=== PATIENT | male | born 1950 | race Two or more races ===

== ENCOUNTER 2024-03-11 17:44 | Emergency (ER) | payer BC ==
[2024-03-11 17:54] LABS: Glucose,Whole Blood 263 mg/dL (70-110)
[2024-03-11 18:02] VITALS: TEMP 98.2
--- NOTE | 2024-03-11 18:19 | ED ---
General Adult HPI - General Chief complaint: Syncope Stated complaint: High blood sugar/dizzy Time Seen by Provider: 03/11/24 18:05 Source: patient, family, RN notes reviewed, old records reviewed Mode of arrival: ambulatory Limitations: physical limitation (Translation provided with the patient's son) - History of Present Illness Initial comments: 73-year-old male with near syncope, elevated blood sugar. Patient is a known diabetic. Earlier today he had an episode where he became diaphoretic, nauseated and nearly passed out. Family states that the blood sugar has been running high the past several weeks. He has been eating. He denies chest pain denies fever. Denies abdominal pain at this time. - Related Data Home Medications Medication Instructions Recorded Confirmed amLODIPine BESYLATE [Amlodipine 10 mg PO DAILY 05/02/15 05/02/15 Besylate] lisinopriL [Lisinopril] 20 mg PO DAILY 05/02/15 05/02/15 Allergies Allergy/AdvReac Type Severity Reaction Status Date / Time sulfamethoxazole Allergy Unknown Verified 05/02/15 09:39 [From Bactrim] trimethoprim [From Bactrim] Allergy Unknown Verified 05/02/15 09:39 Review of Systems ROS Statement: Those systems with pertinent positive or pertinent negative responses have been documented in the HPI. ROS Other: All systems not noted in ROS Statement are negative. Past Medical History Past Medical History: Diabetes Mellitus, Hyperlipidemia, Hypertension History of Any Multi-Drug Resistant Organisms: None Reported Past Surgical History: No Surgical Hx Reported Past Psychological History: No Psychological Hx Reported Past Alcohol Use History: None Reported Past Drug Use History: None Reported General Exam Limitations: no limitations General appearance: alert, in no apparent distress Head exam: Present: atraumatic, normocephalic Eye exam: Present: normal appearance, PERRL ENT exam: Present: mucous membranes dry Neck exam: Present: normal inspection. Absent: tenderness, meningismus Respiratory exam: Present: normal lung sounds bilaterally. Absent: respiratory distress, wheezes Cardiovascular Exam: Present: regular rate, normal rhythm GI/Abdominal exam: Present: soft. Absent: distended, tenderness, guarding Extremities exam: Present: normal inspection, normal capillary refill Neurological exam: Present: alert, CN II-XII intact. Absent: motor sensory deficit Psychiatric exam: Present: normal affect, normal mood Skin exam: Present: intact, pallor. Absent: cyanosis, diaphoretic Course Vital Signs 03/11/24 03/11/24 17:49 20:00 Temperature 98.2 F Pulse Rate 68 78 Respiratory 16 20 Rate Blood Pressure 179/83 168/83 O2 Sat by Pulse 95 98 Oximetry Medical Decision Making - Medical Decision Making Was pt. sent in by a medical professional or institution (LOIS Massey, BODY MECHANIC APPRENTICE, urgent care, hospital, or [place] [facility] facility...) When possible be specific @ -No Did you speak to anyone other than the patient for history (EMS, parent, family, police, friend...)? What history was obtained from this source @ -No Did you review nursing and triage notes (agree or disagree)? Why? @ -I reviewed and agree with nursing and triage notes Were old charts reviewed (outside hosp., previous admission, EMS record, old EKG, old radiological studies, urgent care reports/EKG's, [place] [facility] facility records)? Report findings @ -No old charts were reviewed Differential Diagnosis @ -[Differential Syncope: Valvular disease, hypertrophic cardiomyopathy, pulmonary embolism, tamponade, tachycardia, bradycardia, [place], hypovolemia, hemorrhage, dissection, anemia, intracranial hemorrhage, seizure, hypoglycemia, carbon monoxide poisoning, this is not meant to be an all-inclusive list. EKG interpreted by me (3pts min.). @ -EKG: Sinus rhythm rate of 63, ID interval 186, QRS duration 122, QTc [address] segment elevation, T wave inversion in the lateral precordial leads. X-rays interpreted by me (1pt min.). @ -Rest x-ray negative for acute cardiopulmonary findings. CT interpreted by me (1pt min.). @ -None done U/S interpreted by me (1pt. min.). @ -None done What testing was considered but not performed or refused? (CT, X-rays, U/S, labs)? Why? @ -None What meds were considered but not given or refused? Why? @ -None Did you discuss the management of the patient with other professionals (professionals i.e. LOIS Massey, BODY MECHANIC APPRENTICE, lab, RT, psych nurse, home health care social worker, delivery driver/supervisor, teacher, chairman president and chief executive officer, case finisher)? Give summary @ -No Was smoking cessation discussed for >3mins.? @ -No Was critical care preformed (if so, how long)? @ -No Were there social determinants of health that impacted care today? How? (Homelessness, low income, unemployed, alcoholism, drug addiction, transportation, low edu. Level, literacy, decrease access to med. care, long term, rehab)? @ -No Was there de-escalation of care discussed even if they declined (Discuss DNR or withdrawal of care, Hospice)? DNR status @ -No What co-morbidities impacted this encounter? (DM, HTN, Smoking, COPD, CAD, Cancer, CVA, ARF, Chemo, Hep., AIDS, mental health diagnosis, sleep apnea, morbid obesity)? @ -[Diabetes Was patient admitted / discharged? Hospital course, mention meds given and route, prescriptions, significant lab abnormalities, going to OR and other pertinent info. @ -73-year-old male with near syncopal episode, dehydration. Patient is in sinus rhythm. No chest pain. No abdominal pain. No headache. No focal numbness or weakness. Stable vitals. Normal CBC, normal CMP with the exception of elevated blood glucose urinalysis negative, troponin negative. Patient is very eager for discharge, requesting discharge stating he will follow-up with his primary care provider tomorrow. Undiagnosed new problem with uncertain prognosis? @ -[No Drug Therapy requiring intensive monitoring for toxicity (Heparin, Nitro, Insulin, Cardizem)? @ -No Were any procedures done? @ -No Diagnosis/symptom? @ -Near syncope, dehydration, hyperglycemia Acute, or Chronic, or Acute on Chronic? @Acute Uncomplicated (without systemic symptoms) or Complicated (systemic symptoms)? @ -Default Side effects of treatment? @ -No Exacerbation, Progression, or Severe Exacerbation? @ -No Poses a threat to life or bodily function? How? (Chest pain, [place], [place], pneumonia, PE, COPD, DKA, ARF, appy, cholecystitis, CVA, Diverticulitis, Homicidal, Suicidal, threat to staff... and all critical care pts) @ -No - Lab Data Result diagrams: 03/11/24 18:15 03/11/24 18:15 Lab Results 03/11/24 03/11/24 03/11/24 Range/Units 17:52 18:15 18:15 WBC 10.4 (3.8-10.6) k/uL RBC 5.94 H (4.30-5.90) m/uL Hgb 16.9 (13.0-17.5) gm/dL Hct 50.5 (39.0-53.0) % MCV 85.0 (80.0-100.0) fL MCH 28.4 (25.0-35.0) pg MCHC 33.4 (31.0-37.0) g/dL RDW 13.6 (11.5-15.5) % Plt Count 204 (150-450) k/uL MPV 8.3 Neutrophils % 79 % Lymphocytes % 14 % Monocytes % 4 % Eosinophils % 2 % Basophils % 1 % Neutrophils # 8.2 H (1.3-7.7) k/uL Lymphocytes # 1.5 (1.0-4.8) k/uL Monocytes # 0.4 (0-1.0) k/uL Eosinophils # 0.2 (0-0.7) k/uL Basophils # 0.1 (0-0.2) k/uL PT 10.9 (10.0-12.5) sec INR 1.0 (<1.2) APTT 21.2 L (22.0-30.0) sec Sodium (137-145) mmol/L Potassium (3.5-5.1) mmol/L Chloride (98-107) mmol/L Carbon Dioxide (22-30) mmol/L Anion Gap mmol/L BUN (9-20) mg/dL Creatinine (0.66-1.25) mg/dL Est GFR (CKD-EPI)AfAm (>60 ml/min/1.73 sqM) Est GFR (CKD-EPI)NonAf (>60 ml/min/1.73 sqM) Glucose (74-99) mg/dL POC Glucose (mg/dL) 263 H (70-110) mg/dL POC Glu Shot Hole Driller ID Lindsey Crum Calcium (8.4-10.2) mg/dL Magnesium (1.6-2.3) mg/dL Total Bilirubin (0.2-1.3) mg/dL AST (17-59) U/L ALT (4-49) U/L Alkaline Phosphatase (38-126) U/L Troponin I (0.000-0.034) ng/mL Total Protein (6.3-8.2) g/dL Albumin (3.5-5.0) g/dL Urine Color Urine Appearance (Clear) Urine pH (5.0-8.0) Ur Specific [place] (1.001-1.035) Urine Protein (Negative) Urine Glucose (UA) (Negative) Urine Ketones (Negative) Urine Blood (Negative) Urine Nitrite (Negative) Urine Bilirubin (Negative) Urine Urobilinogen (<2.0) mg/dL Ur Leukocyte Esterase (Negative) 03/11/24 03/11/24 03/11/24 Range/Units 18:15 18:15 19:42 WBC (3.8-10.6) k/uL RBC (4.30-5.90) m/uL Hgb (13.0-17.5) gm/dL Hct (39.0-53.0) % MCV (80.0-100.0) fL MCH (25.0-35.0) pg MCHC (31.0-37.0) g/dL RDW (11.5-15.5) % Plt Count (150-450) k/uL MPV Neutrophils % % Lymphocytes % % Monocytes % % Eosinophils % % Basophils % % Neutrophils # (1.3-7.7) k/uL Lymphocytes # (1.0-4.8) k/uL Monocytes # (0-1.0) k/uL Eosinophils # (0-0.7) k/uL Basophils # (0-0.2) k/uL PT (10.0-12.5) sec INR (<1.2) APTT (22.0-30.0) sec Sodium 135 L (137-145) mmol/L Potassium 4.0 (3.5-5.1) mmol/L Chloride 102 (98-107) mmol/L Carbon Dioxide 21 L (22-30) mmol/L Anion Gap 12 mmol/L BUN 30 H (9-20) mg/dL Creatinine 1.15 (0.66-1.25) mg/dL Est GFR (CKD-EPI)AfAm 73 (>60 ml/min/1.73 sqM) Est GFR (CKD-EPI)NonAf 63 (>60 ml/min/1.73 sqM) Glucose 263 H (74-99) mg/dL POC Glucose (mg/dL) (70-110) mg/dL POC Glu Shot Hole Driller ID Calcium 9.7 (8.4-10.2) mg/dL Magnesium 2.0 (1.6-2.3) mg/dL Total Bilirubin 1.4 H (0.2-1.3) mg/dL AST 25 (17-59) U/L ALT 20 (4-49) U/L Alkaline Phosphatase 66 (38-126) U/L Troponin I <0.012 (0.000-0.034) ng/mL Total Protein 7.3 (6.3-8.2) g/dL Albumin 4.2 (3.5-5.0) g/dL Urine Color Colorless Urine Appearance Clear (Clear) Urine pH 5.0 (5.0-8.0) Ur Specific [place] 1.026 (1.001-1.035) Urine Protein Negative (Negative) Urine Glucose (UA) 4+ H (Negative) Urine Ketones Trace H (Negative) Urine Blood Negative (Negative) Urine Nitrite Negative (Negative) Urine Bilirubin Negative (Negative) Urine Urobilinogen <2.0 (<2.0) mg/dL Ur Leukocyte Esterase Negative (Negative) 03/11/24 Range/Units 19:45 WBC (3.8-10.6) k/uL RBC (4.30-5.90) m/uL Hgb (13.0-17.5) gm/dL Hct (39.0-53.0) % MCV (80.0-100.0) fL MCH (25.0-35.0) pg MCHC (31.0-37.0) g/dL RDW (11.5-15.5) % Plt Count (150-450) k/uL MPV Neutrophils % % Lymphocytes % % Monocytes % % Eosinophils % % Basophils % % Neutrophils # (1.3-7.7) k/uL Lymphocytes # (1.0-4.8) k/uL Monocytes # (0-1.0) k/uL Eosinophils # (0-0.7) k/uL Basophils # (0-0.2) k/uL PT (10.0-12.5) sec INR (<1.2) APTT (22.0-30.0) sec Sodium (137-145) mmol/L Potassium (3.5-5.1) mmol/L Chloride (98-107) mmol/L Carbon Dioxide (22-30) mmol/L Anion Gap mmol/L BUN (9-20) mg/dL Creatinine (0.66-1.25) mg/dL Est GFR (CKD-EPI)AfAm (>60 ml/min/1.73 sqM) Est GFR (CKD-EPI)NonAf (>60 ml/min/1.73 sqM) Glucose (74-99) mg/dL POC Glucose (mg/dL) 194 H (70-110) mg/dL POC Glu Shot Hole Driller ID Soraya Rose Calcium (8.4-10.2) mg/dL Magnesium (1.6-2.3) mg/dL Total Bilirubin (0.2-1.3) mg/dL AST (17-59) U/L ALT (4-49) U/L Alkaline Phosphatase (38-126) U/L Troponin I (0.000-0.034) ng/mL Total Protein (6.3-8.2) g/dL Albumin (3.5-5.0) g/dL Urine Color Urine Appearance (Clear) Urine pH (5.0-8.0) Ur Specific [place] (1.001-1.035) Urine Protein (Negative) Urine Glucose (UA) (Negative) Urine Ketones (Negative) Urine Blood (Negative) Urine Nitrite (Negative) Urine Bilirubin (Negative) Urine Urobilinogen (<2.0) mg/dL Ur Leukocyte Esterase (Negative) Disposition Clinical Impression: Syncope Disposition: HOME SELF-CARE Condition: Fair Instructions (If sedation given, give patient instructions): Syncope (ED), Diabetic Hyperglycemia (ED) Is patient prescribed a controlled substance at d/c from ED?: No Referrals: Vu Hamilton DO [Primary Care Provider] - 1-2 days Time of Disposition: 19:54
[2024-03-11] MEDS: SODIUM CHLORIDE 0.9% 500 ML 500 ML IV ONE (18:23)
[2024-03-11 18:42] LABS: Basophils # (A) 0.1 k/uL (0-0.2); Basophils % (A) 1 %; Eosinophils # (A) 0.2 k/uL (0-0.7); Eosinophils % (A) 2 %; HCT 50.5 % (39.0-53.0); HGB 16.9 gm/dL (13.0-17.5); Lymphocytes # (A) 1.5 k/uL (1.0-4.8); Lymphocytes % (A) 14 %; MCH 28.4 pg (25.0-35.0); MCHC 33.4 g/dL (31.0-37.0); Mean Platelet Volume 8.3; Monocytes # (A) 0.4 k/uL (0-1.0); Monocytes % (A) 4 %; Neutrophils # (A) 8.2 k/uL (1.3-7.7); Neutrophils % (A) 79 %; Platelet Count 204 k/uL (150-450); RBC 5.94 m/uL (4.30-5.90); RDW 13.6 % (11.5-15.5); WBC 10.4 k/uL (3.8-10.6)
[2024-03-11 19:01] LABS: Prothrombin Time 10.9 sec (10.0-12.5)
[2024-03-11 19:02] LABS: ALT 20 U/L (4-49); African American GFR (CKD) 73 (>60 ml/min/1.73 sqM); Anion Gap 12 mmol/L; Blood Urea Nitrogen 30 mg/dL (9-20); Calcium 9.7 mg/dL (8.4-10.2); Carbon Dioxide 21 mmol/L (22-30); Chloride 102 mmol/L (98-107); Glucose 263 mg/dL (74-99); Non-African American GFR(CKD) 63 (>60 ml/min/1.73 sqM); Sodium 135 mmol/L (137-145); Total Bilirubin 1.4 mg/dL (0.2-1.3)
[2024-03-11 19:07] LABS: Partial Thromboplastin Time 21.2 sec (22.0-30.0)
--- NOTE | 2024-03-11 19:07 | XR ---
EXAMINATION TYPE: XR chest 2V DATE OF EXAM: 03/11/2024 6:32 PM CLINICAL INDICATION:Male, 73 years old with history of syncope; [facility] COMPARISON: Chest radiographs from 05/02/2015 TECHNIQUE: XR chest 2V Frontal and lateral views of the chest. FINDINGS: Lungs/Pleura: There is no evidence of pleural effusion, focal consolidation, or pneumothorax. Pulmonary vascularity: Unremarkable. Heart/mediastinum: Cardiomediastinal silhouette is unremarkable. Musculoskeletal: No acute osseous pathology. Other findings: None IMPRESSION: No acute cardiopulmonary disease/process.
[2024-03-11 19:35] LABS: AST 25 U/L (17-59); Albumin 4.2 g/dL (3.5-5.0); Alkaline Phosphatase 66 U/L (38-126); Total Protein 7.3 g/dL (6.3-8.2)
[2024-03-11] MEDS ORDERED: SODIUM CHLORIDE 0.9% 500 ML 500 ML IV ONE (19:38)
[2024-03-11 19:46] LABS: Glucose,Whole Blood 194 mg/dL (70-110)
[2024-03-11 19:54] LABS: Appearance,Urine Clear (Clear); Bilirubin,Urine Negative (Negative); Blood,Urine Negative (Negative); Color,Urine Colorless; Glucose,Urine (UA) 4+ (Negative); Ketones,Urine Trace (Negative); Leukocyte Esterase,Urine Negative (Negative); Nitrite,Urine Negative (Negative); Protein,Urine Negative (Negative); Specific Gravity,Urine 1.026 (1.001-1.035); Urobilinogen,Urine <2.0 mg/dL (<2.0)
[2024-03-11 20:30] VITALS: BP 168/83; PULSE 78; RESP 20
== END 2024-03-11 20:02 | disposition home or self-care (01) ==
LOC: SUPCPDRO 17:44 → EC 17:44
DX: E11.65 Type 2 diabetes mellitus with hyperglycemia (principal); R55 Syncope and collapse; E86.0 Dehydration; Z88.1 Allergy status to other antibiotic agents; Z88.2 Allergy status to sulfonamides
CPT/HCPCS: 36415; 71046; 80053; 81003; 83735; 84484; 85025; 85610; 85730; 93005; 96360; 99284

== ENCOUNTER → 2024-06-01 | Outpatient (CLI) | payer BC | END | disposition home or self-care (01) | LOC: LABWHC1 08:14 | PROVIDERS: ATTEND Nurse Practitioner Family | DX: E11.9 Type 2 diabetes mellitus without complications (principal); I10 Essential (primary) hypertension | CPT/HCPCS: 36415; 83036 ==

== ENCOUNTER → 2024-09-13 | Outpatient (CLI) | payer BC ==
--- NOTE | 2024-09-13 10:00 | MR ---
EXAMINATION TYPE: MR brain wo con DATE OF EXAM: 09/13/2024 COMPARISON: NONE HISTORY: CVA, Left side weakness, memory loss TECHNIQUE: T1-weighted sagittal, T2, FLAIR, and diffusion axial, and T2 coronal coronal views of the brain are submitted. FINDINGS: There is no evidence of acute ischemia. The chronic sinusitis. Orbits are symmetric. Moderate to severe degenerative change with mild to moderate areas of abnormal signal in the white ma tter most assisted with remote ischemic white matter changes. Areas of abnormal signal involving the cerebellar peduncles also most likely on the basis of remote ischemic change favored over demyelinati on. Correlate clinically. No midline shift or mass effect. Areas of abnormal signal involving the basal ganglia and mario are co mpatible with remote ischemic change There is no mass effect. IMPRESSION: 1. No acute intracranial process. 2. Severe sinus chronic sinusitis. 3. Degenerative and remote ischemic changes. [facility], , 09/13/2024 9:58 AM
== END | disposition home or self-care (01) ==
LOC: RADMRIMAIN 08:50
PROVIDERS: ATTEND Student in an Organized Health Care Education/Training Program
CPT/HCPCS: 70551

== ENCOUNTER → 2024-12-22 | Outpatient (CLI) | payer BC ==
[2024-12-22 12:48] LABS: Basophils # (A) 0.05 X 10*3/uL (0.00-0.10); Basophils % (A) 0.8 %; Eosinophils # (A) 0.35 X 10*3/uL (0.04-0.35); Eosinophils % (A) 5.4 %; HCT 47.7 % (39.6-50.0); HGB 16.1 g/dL (13.0-17.0); Lymphocytes # (A) 1.81 X 10*3/uL (0.90-5.00); Lymphocytes % (A) 27.8 %; MCH 28.4 pg (27.0-32.0); MCHC 33.8 g/dL (32.0-37.0); MCV 84.3 FL (80.0-97.0); Monocytes % (A) 7.7 %; NRBC Per 100 WBC 0 X 10*3/uL (0.00-0.01); Neutrophils # (A) 3.78 X 10*3/uL (1.80-7.70); Neutrophils % (A) 58.1 %; Platelet Count 199 X 10*3/uL (140-440); RBC 5.66 X 10*6/uL (4.40-5.60); RDW 13.9 % (11.5-14.5)
[2024-12-22 13:40] LABS: ALT 19 U/L (10-49); AST 16 U/L (14-35); Albumin 4.3 g/dL (3.8-4.9); Albumin/Globulin Ratio 1.65 Ratio (1.60-3.17); Alkaline Phosphatase 84 U/L (41-126); BUN/Creat Ratio 21.22 Ratio (12.00-20.00); Blood Urea Nitrogen 19.1 mg/dL (9.0-27.0); Calcium 9.5 mg/dL (8.7-10.3); Carbon Dioxide 24.1 mmol/L (21.6-31.8); Chloride 104 mmol/L (96-109); Chol/HDL Ratio 3.12 Ratio; Creatine Kinase 47 U/L (35-257); Globulin 2.6 g/dL (1.6-3.3); Glucose 92 mg/dL (70-110); LDL Cholesterol,Calculated 77.8 mg/dL (0.0-131.0); Potassium 3.7 mmol/L (3.5-5.5); Sodium 140 mmol/L (135-145); Total Bilirubin 0.8 mg/dL (0.3-1.2); Total Protein 6.9 g/dL (6.2-8.2); VLDL Calculation 13.24 mg/dL (5.00-40.00)
== END | disposition home or self-care (01) ==
LOC: LABWHC1 09:06
PROVIDERS: ATTEND Student in an Organized Health Care Education/Training Program
DX: I10 Essential (primary) hypertension (principal); I63.9 Cerebral infarction, unspecified; E11.9 Type 2 diabetes mellitus without complications
CPT/HCPCS: 36415; 80053; 80061; 82550; 85025

== ENCOUNTER → 2025-01-01 | Outpatient (CLI) | payer BC ==
[~2025-01-01] MED LIST: DOBUTamine DRIP for NUC MED 500 MG in DEXTROSE/WATER 1 250ML.BAG IV PRN
--- NOTE | 2025-01-01 17:28 | CA ---
Dobutamine Stress Echocardiogram Report Seven De León Age: 74 Gender: M : 1950 Exam Date: 01/01/2025 09:31 Exam Location: [facility] Ordering Physician: Vu Hamilton DO Referring Physician: Vu Hamilton DO Student Development Dean: DONIS Technologist: Ht (in): 71 Wt (lb): 225 Procedure CPT: Indication: R06.09 Other forms of dyspnea ICD-9 Codes: Rhythm: Patient History: HTN, DIABETIC, PRIOR STROKE, HYPERCHOLESTEROLEMIA, FAMILY HX, Cardiac Medications: Medications in past 24 hours: Contrast: Definity Total Dose (mL): 3 Stress Results Protocol: Dobutamine Peak Dose (???g/kg/min): 30 Duration (min:sec): Atropine:(mg) Target HR: 124 Double Product: [id number] Resting HR: 75 Resting BP: 145 / 84 Peak HR: 142 Peak BP: 180 / 67 Max Predicted HR: 146 97 % Max Predicted HR Stress Summary: BP Response: Reason for Termination: TARGET HR Cardiac Symptoms: NO SYMPTOMS ECG Analysis Resting EKG: Normal sinus rhythm poor R-wave progression and left axis deviation Stress EKG: Patient was given intravenous dobutamine over a period of 9 minutes as per protocol achieving 85% of predicted maximum heart rate without chest pain or diagnostic ST segment depression Arrhythmia: Echo Analysis Base Echo Analysis: Normal left ventricular size wall motion systolic function Low Echo Anaylsis: Normal Peak Echo Analysis: Normal hyperdynamic response Recovery Echo: Normal MEASUREMENTS (Male/Female) Normal Values CONCLUSIONS Negative dobutamine stress echo Dr. Tee Padilla MD (Electronically Signed) Final Date: 01 January 2025 17:27
== END | disposition home or self-care (01) ==
LOC: RADNMMAIN 09:05
PROVIDERS: ATTEND Student in an Organized Health Care Education/Training Program
DX: I10 Essential (primary) hypertension (principal); R06.09 Other forms of dyspnea; E11.9 Type 2 diabetes mellitus without complications; Z86.73 Personal history of transient ischemic attack (TIA), and cerebral infarction without residual deficits; E78.00 Pure hypercholesterolemia, unspecified
CPT/HCPCS: 93351; Q9957

== ENCOUNTER → 2025-02-01 | Outpatient (CLI) | payer BC ==
[2025-02-02 03:47] LABS: Appearance,Urine Clear (Clear); Bilirubin,Urine Negative (Negative); Blood,Urine Negative (Negative); Color,Urine Yellow (Yellow); Ketones,Urine Negative (Negative); Nitrite,Urine Negative (Negative); PH, Urine 5.5; Specific Gravity,Urine 1.027 (1.001-1.030); Urobilinogen,Urine 0.2 E.U./DL
[2025-02-02 04:25] LABS: Bacteria,Urine None Seen (None Seen); Yeast (UA) Present (None Seen)
== END | disposition home or self-care (01) ==
LOC: LABWHC1 14:54
PROVIDERS: ATTEND Psychiatry & Neurology Neurology
DX: N39.0 Urinary tract infection, site not specified (principal); R30.0 Dysuria
CPT/HCPCS: 36415; 81001; 84153; 87086

== ENCOUNTER 2025-06-09 17:30 | Observation (INO) | payer BC ==
[2025-06-09 17:37] LABS: Glucose,Whole Blood 182 mg/dL (70-110)
--- NOTE | 2025-06-09 18:27 | ED ---
General Adult HPI - General Chief complaint: Weakness Stated complaint: nausea,weakness Time Seen by Provider: 06/09/25 18:14 Source: patient, family, RN notes reviewed Mode of arrival: wheelchair Limitations: language barrier - History of Present Illness Initial comments: Patient is a 74-year-old male presenting to the emergency department with family for several complaints. Patient has had nausea since yesterday morning. Decreased appetite, limited oral intake today. Patient had difficulty getting out of bed this afternoon. Patient was doing okay prior to that. Patient is not urinating as much as normal. Patient does have history of similar symptoms previously associated with a stroke in the [place]. Family helps translate for the patient at times. Patient does seem to understand majority of questions and does follow commands well - Related Data Home Medications Medication Instructions Recorded Confirmed amLODIPine BESYLATE [Amlodipine 10 mg PO DAILY 05/02/15 05/02/15 Besylate] lisinopriL [Lisinopril] 20 mg PO DAILY 05/02/15 05/02/15 Allergies Allergy/AdvReac Type Severity Reaction Status Date / Time sulfamethoxazole Allergy Unknown Verified 05/02/15 09:39 [From Bactrim] trimethoprim [From Bactrim] Allergy Unknown Verified 05/02/15 09:39 Review of Systems ROS Statement: Those systems with pertinent positive or pertinent negative responses have been documented in the HPI. ROS Other: All systems not noted in ROS Statement are negative. Constitutional: Denies: fever Eyes: Denies: eye pain Respiratory: Denies: dyspnea Cardiovascular: Denies: chest pain Endocrine: Reports: fatigue Gastrointestinal: Reports: nausea. Denies: vomiting Genitourinary: Reports: as per HPI Musculoskeletal: Denies: back pain Neurological: Reports: as per HPI Past Medical History Past Medical History: CVA/TIA, Diabetes Mellitus, Hyperlipidemia, Hypertension History of Any Multi-Drug Resistant Organisms: None Reported Past Surgical History: No Surgical Hx Reported Past Psychological History: No Psychological Hx Reported Smoking Status: Never smoker Past Alcohol Use History: None Reported Past Drug Use History: None Reported General Exam Limitations: no limitations General appearance: alert, in no apparent distress Head exam: Present: normocephalic Eye exam: Present: normal appearance, PERRL, EOMI. Absent: nystagmus ENT exam: Present: normal oropharynx Neck exam: Present: normal inspection. Absent: tenderness Respiratory exam: Present: normal lung sounds bilaterally Cardiovascular Exam: Present: regular rate, normal rhythm GI/Abdominal exam: Present: soft. Absent: distended, tenderness, pulsatile mass Extremities exam: Present: normal inspection, full ROM. Absent: pedal edema, calf tenderness Neurological exam: Present: alert, CN II-XII intact. Absent: motor sensory deficit Psychiatric exam: Present: normal affect, normal mood Skin exam: Present: normal color Course Vital Signs 06/09/25 17:36 Temperature 97.9 F Pulse Rate 128 H Respiratory 18 Rate Blood Pressure 134/79 O2 Sat by Pulse 94 L Oximetry EKG Findings - EKG Results: EKG: interpreted by ERMD (Left axis. Poor R wave progression.), sinus rhythm, normal ST/T EKG shows: tachycardia Medical Decision Making - Medical Decision Making Was pt. sent in by a medical professional or institution (, PA, CARD FOLDER, urgent care, hospital, or senior care...) When possible be specific @ -No Did you speak to anyone other than the patient for history (EMS, parent, family, police, friend...)? What history was obtained from this source @ -Family is present and helps provide history as patient does have some difficulty speaking Beninese. Family helps translate Did you review nursing and triage notes (agree or disagree)? Why? @ -I reviewed and agree with nursing and triage notes Were old charts reviewed (outside hosp., previous admission, EMS record, old EKG, old radiological studies, urgent care reports/EKG's, senior care records)? Report findings @ -No old charts were reviewed Differential Diagnosis (chest pain, altered mental status, abdominal pain women, abdominal pain men, vaginal bleeding, weakness, fever, dyspnea, syncope, head ache, dizziness, GI bleed, back pain, seizure, CVA, palpatations, mental health, musculoskeletal)? @ -Differential Weakness: Hypoglycemia, shock, sepsis, hyponatremia, anemia, infection, ND, ETOH, adverse medicine reaction, overdose, stroke, this is not meant to be an all-inclusive list. EKG interpreted by me (3pts min.). @ -As above X-rays interpreted by me (1pt min.). @ -Chest x-ray shows no acute process CT interpreted by me (1pt min.). @ -CT brain without acute abnormality U/S interpreted by me (1pt. min.). @ -None done What testing was considered but not performed or refused? (CT, X-rays, U/S, labs)? Why? @ -None What meds were considered but not given or refused? Why? @ -None Did you discuss the management of the patient with other professionals (professionals i.e. , PA, CARD FOLDER, lab, RT, psych nurse, adoption social worker, video control operator, teacher, county records management officer, returned case inspector)? Give summary @ -Case discussed with Dr. Srivastava who will admit covering hospital call Was smoking cessation discussed for >3mins.? @ -No Was critical care preformed (if so, how long)? @ -No Were there social determinants of health that impacted care today? How? (Homelessness, low income, unemployed, alcoholism, drug addiction, transportation, low edu. Level, literacy, decrease access to med. care, [place] [facility], rehab)? @ -No Was there de-escalation of care discussed even if they declined (Discuss DNR or withdrawal of care, Hospice)? DNR status @ -No What co-morbidities impacted this encounter? (DM, HTN, Smoking, COPD, CAD, Cancer, CVA, ARF, Chemo, Hep., AIDS, mental health diagnosis, sleep apnea, morbid obesity)? @ -History of stroke Was patient admitted / discharged? Hospital course, mention meds given and route, prescriptions, significant lab abnormalities, going to OR and other pertinent info. @ -Patient presents with weakness. Patient found to have urinary tract infection and urinary retention. Catheter with 1 L of urine out. Patient will be admitted with neuro consult. Patient reevaluated. Patient and family updated Undiagnosed new problem with uncertain prognosis? @ -No Drug Therapy requiring intensive monitoring for toxicity (Heparin, Nitro, Insulin, Cardizem)? @ -No Were any procedures done? @ -No Diagnosis/symptom? @ -Weakness Acute, or Chronic, or Acute on Chronic? @ -Acute Uncomplicated (without systemic symptoms) or Complicated (systemic symptoms)? @ -Complicated with urinary tract infection and urinary retention Side effects of treatment? @ -No Exacerbation, Progression, or Severe Exacerbation? @ -No Poses a threat to life or bodily function? How? (Chest pain, USA, ND, pneumonia, PE, COPD, DKA, ARF, appy, cholecystitis, CVA, Diverticulitis, Homicidal, Suicid al, threat to staff... and all critical care pts) @ -No - Lab Data Result diagrams: 06/09/25 19:04 06/09/25 19:04 Lab Results 06/09/25 06/09/25 06/09/25 Range/Units 17:35 19:04 19:04 WBC 16.52 H (4.50-10.00) 10*3/uL RBC 5.45 (4.40-5.60) 10*6/uL Hgb 15.9 (13.0-17.0) g/dL Hct 45.3 (39.6-50.0) % MCV 83.1 (80.0-97.0) fL MCH 29.2 (27.0-32.0) pg MCHC 35.1 (32.0-37.0) g/dL Plt Count 172 (140-440) 10*3/uL MPV 10.3 (9.5-12.2) fL Immature Gran % (Auto) 0.5 % Neutrophils % 84.0 % Lymphocytes % 7.2 % Monocytes % 8.1 % Eosinophils % 0.0 % Basophils % 0.2 % Immature Gran # 0.08 H (0.00-0.04) 10*3/uL Neutrophils # 13.88 H (1.80-7.70) 10*3/uL Lymphocytes # 1.19 (0.90-5.00) 10*3/uL Monocytes # 1.34 H (0.20-1.00) 10*3/uL Eosinophils # 0.00 L (0.04-0.35) 10*3/uL Basophils # 0.03 (0.00-0.10) 10*3/uL PT 12.1 (10.0-12.5) sec INR 1.1 (<1.2) APTT 22.7 (22.0-30.0) sec Sodium (137-145) mmol/L Potassium (3.5-5.1) mmol/L Chloride (98-107) mmol/L Carbon Dioxide (22-30) mmol/L Anion Gap mmol/L BUN (9-20) mg/dL Creatinine (0.66-1.25) mg/dL Est GFR (CKD-EPI)AfAm (>60 ml/min/1.73 sqM) Est GFR (CKD-EPI)NonAf (>60 ml/min/1.73 sqM) Glucose (74-99) mg/dL POC Glucose (mg/dL) 182 H (70-110) mg/dL POC Glu Family Caseworker ID Elizabeth Bullard Plasma Lactic Acid Brodie (0.7-2.0) mmol/L Calcium (8.4-10.2) mg/dL Magnesium (1.6-2.3) mg/dL Total Bilirubin (0.2-1.3) mg/dL AST (17-59) U/L ALT (4-49) U/L Alkaline Phosphatase (38-126) U/L Troponin I (0.000-0.034) ng/mL Total Protein (6.3-8.2) g/dL Albumin (3.5-5.0) g/dL Urine Color Urine Appearance (Clear) Urine pH (5.0-8.0) Ur Specific [place] (1.001-1.035) Urine Protein (Negative) Urine Glucose (UA) (Negative) Urine Ketones (Negative) Urine Blood (Negative) Urine Nitrite (Negative) Urine Bilirubin (Negative) Urine Urobilinogen (<2.0) mg/dL Ur Leukocyte Esterase (Negative) Urine RBC (0-5) /hpf Urine WBC (0-5) /hpf Urine WBC Clumps (None) /hpf Ur Squamous Epith Cells (0-4) /hpf Urine Bacteria (None) /hpf Urine Mucus (None) /hpf 06/09/25 06/09/25 06/09/25 Range/Units 19:04 19:04 19:04 WBC (4.50-10.00) 10*3/uL RBC (4.40-5.60) 10*6/uL Hgb (13.0-17.0) g/dL Hct (39.6-50.0) % MCV (80.0-97.0) fL MCH (27.0-32.0) pg MCHC (32.0-37.0) g/dL Plt Count (140-440) 10*3/uL MPV (9.5-12.2) fL Immature Gran % (Auto) % Neutrophils % % Lymphocytes % % Monocytes % % Eosinophils % % Basophils % % Immature Gran # (0.00-0.04) 10*3/uL Neutrophils # (1.80-7.70) 10*3/uL Lymphocytes # (0.90-5.00) 10*3/uL Monocytes # (0.20-1.00) 10*3/uL Eosinophils # (0.04-0.35) 10*3/uL Basophils # (0.00-0.10) 10*3/uL PT (10.0-12.5) sec INR (<1.2) APTT (22.0-30.0) sec Sodium 130 L (137-145) mmol/L Potassium 3.4 L (3.5-5.1) mmol/L Chloride 96 L (98-107) mmol/L Carbon Dioxide 17 L (22-30) mmol/L Anion Gap 17 mmol/L BUN 17 (9-20) mg/dL Creatinine 0.87 (0.66-1.25) mg/dL Est GFR (CKD-EPI)AfAm >90 (>60 ml/min/1.73 sqM) Est GFR (CKD-EPI)NonAf 85 (>60 ml/min/1.73 sqM) Glucose 165 H (74-99) mg/dL POC Glucose (mg/dL) (70-110) mg/dL POC Glu Family Caseworker ID Plasma Lactic Acid Brodie 2.2 H* (0.7-2.0) mmol/L Calcium 9.2 (8.4-10.2) mg/dL Magnesium 1.6 (1.6-2.3) mg/dL Total Bilirubin 2.0 H (0.2-1.3) mg/dL AST 25 (17-59) U/L ALT 19 (4-49) U/L Alkaline Phosphatase 74 (38-126) U/L Troponin I (0.000-0.034) ng/mL Total Protein 6.9 (6.3-8.2) g/dL Albumin 4.2 (3.5-5.0) g/dL Urine Color Colorless Urine Appearance Clear (Clear) Urine pH 5.5 (5.0-8.0) Ur Specific [place] 1.023 (1.001-1.035) Urine Protein Negative (Negative) Urine Glucose (UA) 4+ H (Negative) Urine Ketones 1+ H (Negative) Urine Blood Small H (Negative) Urine Nitrite Negative (Negative) Urine Bilirubin Negative (Negative) Urine Urobilinogen <2.0 (<2.0) mg/dL Ur Leukocyte Esterase Large H (Negative) Urine RBC 6 H (0-5) /hpf Urine WBC 65 H (0-5) /hpf Urine WBC Clumps Rare H (None) /hpf Ur Squamous Epith Cells 1 (0-4) /hpf Urine Bacteria Rare H (None) /hpf Urine Mucus Rare H (None) /hpf 06/09/25 Range/Units 19:04 WBC (4.50-10.00) 10*3/uL RBC (4.40-5.60) 10*6/uL Hgb (13.0-17.0) g/dL Hct (39.6-50.0) % MCV (80.0-97.0) fL MCH (27.0-32.0) pg MCHC (32.0-37.0) g/dL Plt Count (140-440) 10*3/uL MPV (9.5-12.2) fL Immature Gran % (Auto) % Neutrophils % % Lymphocytes % % Monocytes % % Eosinophils % % Basophils % % Immature Gran # (0.00-0.04) 10*3/uL Neutrophils # (1.80-7.70) 10*3/uL Lymphocytes # (0.90-5.00) 10*3/uL Monocytes # (0.20-1.00) 10*3/uL Eosinophils # (0.04-0.35) 10*3/uL Basophils # (0.00-0.10) 10*3/uL PT (10.0-12.5) sec INR (<1.2) APTT (22.0-30.0) sec Sodium (137-145) mmol/L Potassium (3.5-5.1) mmol/L Chloride (98-107) mmol/L Carbon Dioxide (22-30) mmol/L Anion Gap mmol/L BUN (9-20) mg/dL Creatinine (0.66-1.25) mg/dL Est GFR (CKD-EPI)AfAm (>60 ml/min/1.73 sqM) Est GFR (CKD-EPI)NonAf (>60 ml/min/1.73 sqM) Glucose (74-99) mg/dL POC Glucose (mg/dL) (70-110) mg/dL POC Glu Family Caseworker ID Plasma Lactic Acid Brodie (0.7-2.0) mmol/L Calcium (8.4-10.2) mg/dL Magnesium (1.6-2.3) mg/dL Total Bilirubin (0.2-1.3) mg/dL AST (17-59) U/L ALT (4-49) U/L Alkaline Phosphatase (38-126) U/L Troponin I 0.015 (0.000-0.034) ng/mL Total Protein (6.3-8.2) g/dL Albumin (3.5-5.0) g/dL Urine Color Urine Appearance (Clear) Urine pH (5.0-8.0) Ur Specific [place] (1.001-1.035) Urine Protein (Negative) Urine Glucose (UA) (Negative) Urine Ketones (Negative) Urine Blood (Negative) Urine Nitrite (Negative) Urine Bilirubin (Negative) Urine Urobilinogen (<2.0) mg/dL Ur Leukocyte Esterase (Negative) Urine RBC (0-5) /hpf Urine WBC (0-5) /hpf Urine WBC Clumps (None) /hpf Ur Squamous Epith Cells (0-4) /hpf Urine Bacteria (None) /hpf Urine Mucus (None) /hpf Disposition Clinical Impression: Weakness Disposition: ADMITTED IP TO THIS HOSP Is patient prescribed a controlled substance at d/c from ED?: No Referrals: Nonstaff,Physician [Primary Care Provider] - 1-2 days Time of Disposition: 21:10
[2025-06-09 19:26] LABS: Basophils # (A) 0.03 10*3/uL (0.00-0.10); Basophils % (A) 0.2 %; Eosinophils # (A) 0.00 10*3/uL (0.04-0.35); Eosinophils % (A) 0.0 %; HCT 45.3 % (39.6-50.0); HGB 15.9 g/dL (13.0-17.0); Lymphocytes # (A) 1.19 10*3/uL (0.90-5.00); Lymphocytes % (A) 7.2 %; MCH 29.2 pg (27.0-32.0); MCHC 35.1 g/dL (32.0-37.0); MCV 83.1 fL (80.0-97.0); Monocytes # (A) 1.34 10*3/uL (0.20-1.00); Monocytes % (A) 8.1 %; Neutrophils # (A) 13.88 10*3/uL (1.80-7.70); Neutrophils % (A) 84.0 %; Platelet Count 172 10*3/uL (140-440); RBC 5.45 10*6/uL (4.40-5.60); RDW 13.2 % (11.5-14.5); WBC 16.52 10*3/uL (4.50-10.00)
[2025-06-09 19:39] LABS: INR 1.1 (<1.2); Partial Thromboplastin Time 22.7 sec (22.0-30.0); Prothrombin Time 12.1 sec (10.0-12.5)
[2025-06-09 19:54] LABS: Bacteria,Urine Rare /hpf; Bilirubin,Urine Negative (Negative); Blood,Urine Small (Negative); Color,Urine Colorless; Glucose,Urine (UA) 4+ (Negative); Ketones,Urine 1+ (Negative); Leukocyte Esterase,Urine Large (Negative); Mucus,Urine Rare /hpf; Nitrite,Urine Negative (Negative); PH, Urine 5.5 (5.0-8.0); Protein,Urine Negative (Negative); RBC,Urine 6 /hpf (0-5); Specific Gravity,Urine 1.023 (1.001-1.035); Squamous Epithelial Cell,Urine 1 /hpf (0-4); Urobilinogen,Urine <2.0 mg/dL (<2.0); WBC,Urine 65 /hpf (0-5)
[2025-06-09] MEDS: SODIUM CHLORIDE 0.9% 1,000 ML IV SCH (19:54)
[2025-06-09] MEDS: FAMOTIDINE 20 MG/2 ML VIAL IV STA (19:54)
[2025-06-09 19:55] LABS: ALT 19 U/L (4-49); AST 25 U/L (17-59); African American GFR (CKD) >90 (>60 ml/min/1.73 sqM); Albumin 4.2 g/dL (3.5-5.0); Alkaline Phosphatase 74 U/L (38-126); Anion Gap 17 mmol/L; Blood Urea Nitrogen 17 mg/dL (9-20); Calcium 9.2 mg/dL (8.4-10.2); Carbon Dioxide 17 mmol/L (22-30); Chloride 96 mmol/L (98-107); Glucose 165 mg/dL (74-99); Magnesium 1.6 mg/dL (1.6-2.3); Non-African American GFR(CKD) 85 (>60 ml/min/1.73 sqM); Potassium 3.4 mmol/L (3.5-5.1); Sodium 130 mmol/L (137-145); Total Protein 6.9 g/dL (6.3-8.2)
--- NOTE | 2025-06-09 20:05 | XR ---
EXAMINATION TYPE: XR chest 2V DATE OF EXAM: 06/09/2025 7:49 PM COMPARISON: Chest radiographs from 03/11/2024. CLINICAL INDICATION: Male, 74 years old with history of Weakness; [facility] TECHNIQUE: XR chest 2V Frontal and lateral views of the chest. FINDINGS: Lungs/Pleura: There is no evidence of pleural effusion, focal consolidation, or pneumothorax. Pulmonary vascularity: Unremarkable. Heart/mediastinum: Cardiomediastinal silhouette is unremarkable. Musculoskeletal: No acute osseous pathology. Other findings: None IMPRESSION: No acute cardiopulmonary disease/process. [facility], , 06/09/2025 8:03 PM
[2025-06-09] MEDS: cefTRIAXone IN SWFI 1,000 MG/10 ML SYRINGE IVP STA (20:52)
[2025-06-09] MEDS ORDERED: NALOXONE 0.4 MG/ML 1 ML VIAL IV PRN (21:07)
--- NOTE | 2025-06-09 21:07 | CT ---
EXAMINATION TYPE: CT brain wo con DATE OF EXAM: 06/09/2025 8:41 PM COMPARISON: 05/02/2015. CLINICAL INDICATION: Male, 74 years old with history of weakness, WEAKNESS, TECHNIQUE: Brain: Axial CT images of the brain were obtained with coronal and sagittal reformats created and rev iewed. Contrast used: None. Oral contrast used: None. CT DLP: 1145 mGycm, Automated exposure control for dose reduction was used. FINDINGS: Brain: Extra-axial spaces: No abnormal extra-axial fluid collections. Ventricular system: Dilatation in proportion to cerebral atrophy. Cerebral parenchyma: Cerebral atrophy. No acute intraparenchymal hemorrhage or mass effect. The garcia -white junction is well differentiated. Scattered hypoattenuating areas are seen within the white mat ter. Cerebellum: Unremarkable. Mass effect: No evidence of midline shift. Intracranial vasculature: Atherosclerotic calcifications of the intracranial vessels. Soft tissues: Normal. Calvarium/osseous structures: No depressed skull fracture. Paranasal sinuses and mastoid air cells: Moderate scattered paranasal sinus disease. Visualized orbits: Orbital contents are intact. IMPRESSION: 1. No acute intracranial process. 2. Nonspecific white matter changes, likely secondary to chronic small vessel ischemic disease. 3. 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 4. Moderate paranasal sinus disease. [facility], , 06/09/2025 9:05 PM
--- NOTE | 2025-06-09 22:02 | CT ---
EXAMINATION TYPE: CT angio head neck DATE OF EXAM: 06/09/2025 9:24 PM COMPARISON: CT same day. CLINICAL INDICATION: Male, 74 years old with history of weak; PHH, weakness TECHNIQUE: Axially acquired helical CT angiogram of the head and neck was obtained with contrast. Axi al images are supplemented with 3D reconstructions and MIP images which were post-processed at an in dependent workstation. NASCET criteria used. Contrast used:65 mL of Isovue 370 with IV Contrast, Oral contrast used: None. CT DLP: 527.7 mGycm, Automated exposure control for dose reduction was used. FINDINGS: CTA HEAD: No evidence of acute intracranial hemorrhage, mass effect, or midline shift. The ventricles, sulci, a nd cisterns are unremarkable. Moderate paranasal sinus disease. Vertebral arteries: The vertebral arteries are patent. Vertebral artery dominance: Codominant Basilar artery: The basilar artery is intact. The basilar artery bifurcation is normal. Internal Carotid arteries: High-grade stenosis of the right internal artery series 509 image 121 seco ndary to noncalcified plaque with slitlike appearance. The cervical, petrous, cavernous and supraclin oid segments are normal. FRANCISCO JAVIER: Atrophic right A1 segment, normal left. Patent with no evidence of aneurysm. ACOM: Present without evidence of aneurysm. MCA: Patent with no evidence of aneurysm. FORESTRY CONSULTANT: Patent with no evidence of aneurysm. PCOM: Hypoplastic bilaterally. Dural sinuses: Dominant left atrophic right transverse sinus CTA NECK: Right Carotid System: The common carotid artery and external carotid artery are patent. The carotid bifurcation demonstrate s no evidence of hemodynamically significant stenosis. The remaining portions of the internal carotid artery demonstrate normal size without significant narrowing. Left Carotid System: The common carotid and external carotid arteries are patent. There is less than 25% stenosis at the c arotid bifurcation secondary to calcified/noncalcified plaque. The rest of the internal carotid arter y is patent. Vertebral arteries are patent without evidence hemodynamically significant stenosis. There is a 2-vessel aortic arch. The origins of the great vessels are patent. No evidence of hemodyna mically significant stenosis. IMPRESSION: 1. Slitlike appearance of the cavernous portion of the right internal carotid artery with greater th an 75% stenosis. 2. Noncalcified plaque at the left carotid bifurcation without significant stenosis. 3. Atrophic right A1 segment. 4. No evidence of dissection of the cervical internal carotid arteries or vertebral arteries. 5. No any evidence of significant stenosis at the carotid bifurcations. 6. No evidence of intracranial aneurysm. [facility], , 06/09/2025 10:00 PM
[2025-06-10 04:32] LABS: Glucose,Whole Blood 115 mg/dL (70-110)
[2025-06-10] MEDS: ACETAMINOPHEN TAB 325 MG TAB PO PRN (04:37)
[2025-06-10 06:21] LABS: Basophils # (A) 0.03 10*3/uL (0.00-0.10); Basophils % (A) 0.2 %; Eosinophils # (A) 0.01 10*3/uL (0.04-0.35); Eosinophils % (A) 0.1 %; HCT 40.9 % (39.6-50.0); HGB 14.4 g/dL (13.0-17.0); Lymphocytes # (A) 1.32 10*3/uL (0.90-5.00); Lymphocytes % (A) 10.7 %; MCH 28.9 pg (27.0-32.0); MCHC 35.2 g/dL (32.0-37.0); MCV 82.1 fL (80.0-97.0); Monocytes # (A) 0.80 10*3/uL (0.20-1.00); Monocytes % (A) 6.5 %; Neutrophils # (A) 10.15 10*3/uL (1.80-7.70); Neutrophils % (A) 82.1 %; Platelet Count 160 10*3/uL (140-440); RBC 4.98 10*6/uL (4.40-5.60); RDW 13.6 % (11.5-14.5); WBC 12.36 10*3/uL (4.50-10.00)
[2025-06-10 06:48] LABS: ALT 15 U/L (4-49); AST 21 U/L (17-59); African American GFR (CKD) >90 (>60 ml/min/1.73 sqM); Albumin 3.4 g/dL (3.5-5.0); Alkaline Phosphatase 70 U/L (38-126); Anion Gap 13 mmol/L; Blood Urea Nitrogen 18 mg/dL (9-20); Calcium 9.0 mg/dL (8.4-10.2); Carbon Dioxide 20 mmol/L (22-30); Chloride 100 mmol/L (98-107); Glucose 108 mg/dL (74-99); Non-African American GFR(CKD) 89 (>60 ml/min/1.73 sqM); Potassium 3.1 mmol/L (3.5-5.1); Sodium 133 mmol/L (137-145); Total Protein 5.9 g/dL (6.3-8.2)
[2025-06-10 07:43] LABS: Glucose,Whole Blood 101 mg/dL (70-110)
[2025-06-10 07:49] VITALS: RESP 20
[2025-06-10] MEDS: POTASSIUM CHLORIDE ER 20 MEQ TAB.ER PO SCH (11:01)
[2025-06-10] MEDS: CLOPIDOGREL 75 MG TAB PO SCH (11:41)
[2025-06-10] MEDS: amLODIPine 10 MG TAB PO SCH (11:41)
[2025-06-10] MEDS: DAPAGLIFLOZIN PROPANEDIOL 10 MG TABLET PO SCH (11:41)
[2025-06-10] MEDS: VALSARTAN 160 MG TAB PO SCH (11:41)
[2025-06-10 12:21] LABS: Glucose,Whole Blood 168 mg/dL (70-110)
[2025-06-10] MEDS: TAMSULOSIN 0.4 MG CAP.ER.24H PO SCH (12:29)
[2025-06-10 12:58] VITALS: BP 149/85; PULSE 100; TEMP 98.5
--- NOTE | 2025-06-10 15:35 | P.HPIM ---
History of Present Illness Patient 74-year-old pleasant male came in with complaints of unable to urinate and patient apparently was bit confused with nauseous yesterday. Patient was having generalized weakness patient is family member he is concerned about CVA because of the generalized weakness patient had stroke in the past he is on Plavix but not on any statin because he believed he has an allergic reaction when he had swelling in the scrotal area. Patient had a CT of the head which showed chronic microvascular ischemic changes but no acute abnormality. Patient had a CT angio of the head and neck which had 75% stenosis of the right internal carotid and a small plaque in the left carotid. Patient was hyponatremic and also had leukocytosis patient does not have any symptoms of UTI. Patient's urine showed some rare WBC clumps large leukocyte Estrace patient does not have any fever did have leukocytosis which is improving patient received 1 dose of ceftriaxone in ER. Anderson catheter was placed. Earlier I discontinued Anderson catheter to see if he can urinate by himself patient has some urinary retention. Patient's Anderson cath will be put back in we will start him on tamsulosin patient will follow-up with urology as an outpatient. Patient does not have any significant weakness today is ambulating to the bathroom. REVIEW OF SYSTEMS: All other systems are negative except those mentioned in the HPI PHYSICAL EXAMINATION: GENERAL: The patient is alert and oriented x3, not in any acute distress. Well developed, well nourished. HEENT: Pupils are round and equally reacting to light. EOMI. No scleral icterus. No conjunctival pallor. Normocephalic, atraumatic. No pharyngeal erythema. No thyromegaly. CARDIOVASCULAR: S1 and S2 present. No murmurs, rubs, or gallops. PULMONARY: Chest is clear to auscultation, no wheezing or crackles. ABDOMEN: Soft, nontender, nondistended, normoactive bowel sounds. No palpable organomegaly. MUSCULOSKELETAL: No joint swelling or deformity. EXTREMITIES: No cyanosis, clubbing, or pedal edema. NEUROLOGICAL: Gross neurological examination did not reveal any focal deficits. SKIN: No rashes. Assessment and plan -Altered mental status secondary to urinary retention. There is a possibility of urinary tract infection to I cannot completely rule it out patient had leukocytosis which can be from urinary tension and related UTI. 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 Patient will not need intervention at this time for this lesion. Patient will be discharged today : Past Medical History Past Medical History: CVA/TIA, Diabetes Mellitus, Hyperlipidemia, Hypertension History of Any Multi-Drug Resistant Organisms: None Reported Past Surgical History: No Surgical Hx Reported Past Psychological History: No Psychological Hx Reported Smoking Status: Never smoker Past Alcohol Use History: None Reported Past Drug Use History: None Reported Medications and Allergies Home Medications Medication Instructions Recorded Confirmed Type Amlodipine Besylate/Valsartan 1 tab PO DAILY 06/09/25 06/09/25 History [Amlodipine Besylate/Valsartan 10-160 mg] Clopidogrel [Plavix] 75 mg PO DAILY 06/09/25 06/09/25 History DULoxetine HCL [Cymbalta] 30 mg PO DAILY 06/09/25 06/09/25 History Dapagliflozin Propanediol [Farxiga] 10 mg PO DAILY 06/09/25 06/09/25 History Omeprazole 20 mg PO DAILY 06/09/25 06/09/25 History cilostazoL [Pletal] 100 mg PO BID 06/09/25 06/09/25 History Atorvastatin [Lipitor] 40 mg PO HS #30 tablet 06/10/25 Rx Tamsulosin [Flomax] 0.4 mg PO PC-BRKFST #30 cap 06/10/25 Rx cefuroxime axetiL [Ceftin] 500 mg PO BID #6 tab 06/10/25 Rx Allergies Allergy/AdvReac Type Severity Reaction Status Date / Time sulfamethoxazole Allergy Unknown Verified 06/09/25 21:33 [From Bactrim] trimethoprim [From Bactrim] Allergy Unknown Verified 06/09/25 21:33 Physical Exam Vitals: Vital Signs Temp Pulse Pulse Resp BP BP Pulse Ox 06/10/25 12:16 98.5 F 100 20 149/85 92 L 06/10/25 07:38 98.1 F 94 20 156/72 91 L 06/10/25 05:51 98.8 F 96 16 06/10/25 04:25 101.2 F H 106 H 16 138/75 94 L 06/10/25 00:29 116 H 18 150/83 95 06/09/25 17:36 97.9 F 128 H 18 134/79 94 L Intake and Output 06/10/25 06/10/25 06/10/25 06:59 14:59 22:59 Output Total 4150 Balance -4150 Output: Urine 4150 Uretheral (Anderson) 2400 Other: Voiding Method Indwelling Catheter Weight 99.79 kg Results CBC & Chem 7: 06/10/25 05:54 06/10/25 05:54 Labs: Abnormal Lab Results - Last 24 Hours (Table) 06/09/25 06/09/25 06/09/25 Range/Units 17:35 19:04 19:04 WBC 16.52 H (4.50-10.00) 10*3/uL Immature Gran # 0.08 H (0.00-0.04) 10*3/uL Neutrophils # 13.88 H (1.80-7.70) 10*3/uL Monocytes # 1.34 H (0.20-1.00) 10*3/uL Eosinophils # 0.00 L (0.04-0.35) 10*3/uL Sodium (137-145) mmol/L Potassium (3.5-5.1) mmol/L Chloride (98-107) mmol/L Carbon Dioxide (22-30) mmol/L Glucose (74-99) mg/dL POC Glucose (mg/dL) 182 H (70-110) mg/dL Plasma Lactic Acid Brodie (0.7-2.0) mmol/L Total Bilirubin (0.2-1.3) mg/dL Total Protein (6.3-8.2) g/dL Albumin (3.5-5.0) g/dL Urine Glucose (UA) 4+ H (Negative) Urine Ketones 1+ H (Negative) Urine Blood Small H (Negative) Ur Leukocyte Esterase Large H (Negative) Urine RBC 6 H (0-5) /hpf Urine WBC 65 H (0-5) /hpf Urine WBC Clumps Rare H (None) /hpf Urine Bacteria Rare H (None) /hpf Urine Mucus Rare H (None) /hpf 06/09/25 06/09/25 06/10/25 Range/Units 19:04 19:04 04:30 WBC (4.50-10.00) 10*3/uL Immature Gran # (0.00-0.04) 10*3/uL Neutrophils # (1.80-7.70) 10*3/uL Monocytes # (0.20-1.00) 10*3/uL Eosinophils # (0.04-0.35) 10*3/uL Sodium 130 L (137-145) mmol/L Potassium 3.4 L (3.5-5.1) mmol/L Chloride 96 L (98-107) mmol/L Carbon Dioxide 17 L (22-30) mmol/L Glucose 165 H (74-99) mg/dL POC Glucose (mg/dL) 115 H (70-110) mg/dL Plasma Lactic Acid Brodie 2.2 H* (0.7-2.0) mmol/L Total Bilirubin 2.0 H (0.2-1.3) mg/dL Total Protein (6.3-8.2) g/dL Albumin (3.5-5.0) g/dL Urine Glucose (UA) (Negative) Urine Ketones (Negative) Urine Blood (Negative) Ur Leukocyte Esterase (Negative) Urine RBC (0-5) /hpf Urine WBC (0-5) /hpf Urine WBC Clumps (None) /hpf Urine Bacteria (None) /hpf Urine Mucus (None) /hpf 06/10/25 06/10/25 06/10/25 Range/Units 05:54 05:54 12:20 WBC 12.36 H (4.50-10.00) 10*3/uL Immature Gran # 0.05 H (0.00-0.04) 10*3/uL Neutrophils # 10.15 H (1.80-7.70) 10*3/uL Monocytes # (0.20-1.00) 10*3/uL Eosinophils # 0.01 L (0.04-0.35) 10*3/uL Sodium 133 L (137-145) mmol/L Potassium 3.1 L (3.5-5.1) mmol/L Chloride (98-107) mmol/L Carbon Dioxide 20 L (22-30) mmol/L Glucose 108 H (74-99) mg/dL POC Glucose (mg/dL) 168 H (70-110) mg/dL Plasma Lactic Acid Brodie (0.7-2.0) mmol/L Total Bilirubin (0.2-1.3) mg/dL Total Protein 5.9 L (6.3-8.2) g/dL Albumin 3.4 L (3.5-5.0) g/dL Urine Glucose (UA) (Negative) Urine Ketones (Negative) Urine Blood (Negative) Ur Leukocyte Esterase (Negative) Urine RBC (0-5) /hpf Urine WBC (0-5) /hpf Urine WBC Clumps (None) /hpf Urine Bacteria (None) /hpf Urine Mucus (None) /hpf Thrombosis Risk Factor Assmnt - Choose All That Apply Any of the Below Risk Factors Present?: Yes Each Factor Represents 1 point: Obesity (BMI >25) Other Risk Factors: Yes Each Risk Factor Represents 2 Points: Age 61-74 years Thrombosis Risk Factor Assessment Total Risk Factor Score: 3 Thrombosis Risk Factor Assessment Level: Moderate Risk
--- NOTE | 2025-06-10 15:36 | P.DS ---
Providers Date of admission: 06/09/25 21:08 Attending physician: Osorio Hill MD Primary care physician: Physician Nonstaff Hospital Course: Patient 74-year-old pleasant male came in with complaints of unable to urinate and patient apparently was bit confused with nauseous yesterday. Patient was having generalized weakness patient is family member he is concerned about CVA because of the generalized weakness patient had stroke in the past he is on Plavix but not on any statin because he believed he has an allergic reaction when he had swelling in the scrotal area. Patient had a CT of the head which showed chronic microvascular ischemic changes but no acute abnormality. Patient had a CT angio of the head and neck which had 75% stenosis of the right internal carotid and a small plaque in the left carotid. Patient was hyponatremic and also had leukocytosis patient does not have any symptoms of UTI. Patient's urine showed some rare WBC clumps large leukocyte Estrace patient does not have any fever did have leukocytosis which is improving patient received 1 dose of ceftriaxone in ER. Anderson catheter was placed. Earlier I discontinued Anderson catheter to see if he can urinate by himself patient has some urinary retention. Patient's Anderson cath will be put back in we will start him on tamsulosin patient will follow-up with urology as an outpatient. Patient does not have any significant weakness today is ambulating to the bathroom. REVIEW OF SYSTEMS: All other systems are negative except those mentioned in the HPI PHYSICAL EXAMINATION: GENERAL: The patient is alert and oriented x3, not in any acute distress. Well developed, well nourished. HEENT: Pupils are round and equally reacting to light. EOMI. No scleral icterus. No conjunctival pallor. Normocephalic, atraumatic. No pharyngeal erythema. No thyromegaly. CARDIOVASCULAR: S1 and S2 present. No murmurs, rubs, or gallops. PULMONARY: Chest is clear to auscultation, no wheezing or crackles. ABDOMEN: Soft, nontender, nondistended, normoactive bowel sounds. No palpable organomegaly. MUSCULOSKELETAL: No joint swelling or deformity. EXTREMITIES: No cyanosis, clubbing, or pedal edema. NEUROLOGICAL: Gross neurological examination did not reveal any focal deficits. SKIN: No rashes. Assessment and plan -Altered mental status secondary to urinary retention. There is a possibility of urinary tract infection to I cannot completely rule it out patient had le ukocytosis which can be from urinary tension and related UTI. 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 Patient will not need intervention at this time for this lesion. Patient will be discharged today Plan - Discharge Summary Discharge Rx Participant: No New Discharge Prescriptions: New Tamsulosin [Flomax] 0.4 mg PO PC-BRKFST #30 cap Atorvastatin [Lipitor] 40 mg PO HS #30 tablet cefuroxime axetiL [Ceftin] 500 mg PO BID #6 tab Continue Dapagliflozin Propanediol [Farxiga] 10 mg PO DAILY DULoxetine HCL [Cymbalta] 30 mg PO DAILY cilostazoL [Pletal] 100 mg PO BID Clopidogrel [Plavix] 75 mg PO DAILY Amlodipine Besylate/Valsartan [Amlodipine Besylate/Valsartan 10-160 mg] 1 tab PO DAILY Omeprazole 20 mg PO DAILY Discharge Medication List Amlodipine Besylate/Valsartan [Amlodipine Besylate/Valsartan 10-160 mg] 1 tab PO DAILY 06/09/25 [History] Clopidogrel [Plavix] 75 mg PO DAILY 06/09/25 [History] DULoxetine HCL [Cymbalta] 30 mg PO DAILY 06/09/25 [History] Dapagliflozin Propanediol [Farxiga] 10 mg PO DAILY 06/09/25 [History] Omeprazole 20 mg PO DAILY 06/09/25 [History] cilostazoL [Pletal] 100 mg PO BID 06/09/25 [History] Atorvastatin [Lipitor] 40 mg PO HS #30 tablet 06/10/25 [Rx] Tamsulosin [Flomax] 0.4 mg PO PC-BRKFST #30 cap 06/10/25 [Rx] cefuroxime axetiL [Ceftin] 500 mg PO BID #6 tab 06/10/25 [Rx] Follow up Appointment(s)/Referral(s): Pillo Rosenthal MD [STAFF PHYSICIAN] - 3 Days Vu Hamilton DO [REFERRING] - 1 Week Nonstaff,Physician [Primary Care Provider] - 1-2 days [facility] Visiting Nurse, [NON-STAFF] - 1 Week Discharge Disposition: HOME WITH HOME HEALTH SERVICES
[2025-06-11] MEDS ORDERED: PANTOPRAZOLE 40 MG TABLET PO SCH (07:30)
== END 2025-06-10 17:18 | disposition home health service (06) ==
LOC: EC 17:30 → 5NMEDONC 21:08
PROVIDERS: ADMIT Internal Medicine; ATTEND Internal Medicine
DX: R41.82 Altered mental status, unspecified (principal); R33.9 Retention of urine, unspecified; D72.829 Elevated white blood cell count, unspecified; R53.1 Weakness; R11.0 Nausea; E87.1 Hypo-osmolality and hyponatremia; I10 Essential (primary) hypertension; E78.5 Hyperlipidemia, unspecified; E11.9 Type 2 diabetes mellitus without complications; K21.9 Gastro-esophageal reflux disease without esophagitis; I65.23 Occlusion and stenosis of bilateral carotid arteries; Z79.899 Other long term (current) drug therapy; Z79.02 Long term (current) use of antithrombotics/antiplatelets; Z79.84 Long term (current) use of oral hypoglycemic drugs; Z88.2 Allergy status to sulfonamides; Z86.73 Personal history of transient ischemic attack (TIA), and cerebral infarction without residual deficits
CPT/HCPCS: 96361; 96374; 96375; 99285; 51798; 36415; 93005; 83880; 80053 ×2; 83605; 83735; 84484; 85025 ×2; 85610; 85730; 81001; 87040; 87086; 87077; 87186; 71046; 70496; 70450; 70498; G0378 ×2; J0696; Q9967; J1308

== ENCOUNTER 2025-06-11 23:01 | Emergency (ER) | payer BC ==
--- NOTE | 2025-06-12 00:37 | ED ---
Male Urogenital HPI - General Chief complaint: Urogenital Stated complaint: Catheter Malfunction Time Seen by Provider: 06/11/25 23:12 Source: patient, RN notes reviewed Mode of arrival: ambulatory Limitations: language barrier - History of Present Illness Initial comments: This is a 74-year-old male who presents to the emergency department for problems with his Anderson catheter bag. Patient's son states that he had accidentally stepped on the bag and pulled it slightly. He has since had a lot of pain and noticed blood in the urine. He is currently on antibiotics for a UTI. - Related Data Home Medications Medication Instructions Recorded Confirmed Amlodipine Besylate/Valsartan 1 tab PO DAILY 06/09/25 06/09/25 [Amlodipine Besylate/Valsartan 10-160 mg] Clopidogrel [Plavix] 75 mg PO DAILY 06/09/25 06/09/25 DULoxetine HCL [Cymbalta] 30 mg PO DAILY 06/09/25 06/09/25 Dapagliflozin Propanediol [Farxiga] 10 mg PO DAILY 06/09/25 06/09/25 Omeprazole 20 mg PO DAILY 06/09/25 06/09/25 cilostazoL [Pletal] 100 mg PO BID 06/09/25 06/09/25 Previous Rx's Medication Instructions Recorded Atorvastatin [Lipitor] 40 mg PO HS #30 tablet 06/10/25 Tamsulosin [Flomax] 0.4 mg PO PC-BRKFST #30 cap 06/10/25 cefuroxime axetiL [Ceftin] 500 mg PO BID #6 tab 06/10/25 Allergies Allergy/AdvReac Type Severity Reaction Status Date / Time sulfamethoxazole Allergy Unknown Verified 06/11/25 23:06 [From Bactrim] trimethoprim [From Bactrim] Allergy Unknown Verified 06/11/25 23:06 Review of Systems ROS Statement: Those systems with pertinent positive or pertinent negative responses have been documented in the HPI. ROS Other: All systems not noted in ROS Statement are negative. Past Medical History Past Medical History: CVA/TIA, Diabetes Mellitus, Hyperlipidemia, Hypertension History of Any Multi-Drug Resistant Organisms: None Reported Past Surgical History: No Surgical Hx Reported Past Psychological History: No Psychological Hx Reported Smoking Status: Never smoker Past Alcohol Use History: None Reported Past Drug Use History: None Reported General Exam Limitations: language barrier General appearance: alert, in no apparent distress Head exam: Present: atraumatic, normocephalic, normal inspection Respiratory exam: Present: normal lung sounds bilaterally. Absent: respiratory distress, wheezes, rales, rhonchi, stridor Cardiovascular Exam: Present: regular rate, normal rhythm Neurological exam: Present: alert, oriented X3, CN II-XII intact Psychiatric exam: Present: normal affect, normal mood Skin exam: Present: warm, dry, intact, normal color. Absent: rash Course Vital Signs 06/11/25 06/12/25 23:02 01:14 Temperature 97.4 F L 97.8 F Pulse Rate 69 82 Respiratory 18 20 Rate Blood Pressure 137/71 130/81 O2 Sat by Pulse 97 97 Oximetry Medical Decision Making - Medical Decision Making This is a 74-year-old male who presents to the emergency department for problems with his Anderson catheter. Was pt. sent in by a medical professional or institution? @ -No Did you speak to anyone other than the patient for history? @ -His son provided the majority of the history. Did you review nursing and triage notes? @ -Yes, and I agree, it is accurate with regards to the patient's symptoms. Were old charts reviewed? @ -No Differential Diagnosis? @ -Malposition, malfunction, UTI, injury, this is not meant to be an all- inclusive list. EKG interpreted by me (3pts min.)? @ -Not obtained X-rays interpreted by me (1pt min.)? @ -Not obtained CT interpreted by me (1pt min.)? @ -Not obtained U/S interpreted by me (1pt. min.)? @ -Not obtained What testing was considered but not performed? (CT, X-rays, U/S, labs)? Why? @ -None What meds were considered but not given? Why? @ -None Did you discuss the management of the patient with other professionals? @ -No Did you reconcile home meds? @ -No Was smoking cessation discussed for >3mins.? @ -No Was critical care preformed (if so, how long)? @ -No Were there social determinants of health that impacted care today? How? (Homelessness, low income, unemployed, alcoholism, drug addiction, transportation, low edu. Level, literacy, decrease access to med. care, detention, rehab)? @ -No Was there de-escalation of care discussed even if they declined? (Discuss DNR or withdrawal of care, Hospice)? @ -No What co-morbidities impacted this encounter? (DM, HTN, Smoking, COPD, CAD, Cancer, CVA, Hep., AIDS, mental health diagnosis, sleep apnea, morbid obesity)? @ -None Was patient admitted / discharged? @ -Discharged. Nursing staff evaluated the catheter and ended up having to reposition it. It appears that the balloon had been pulled down into the urethra, likely causing trauma and his discomfort. When this was reinflated in the bladder, patient's pain improved significantly and he also had improved flow. Discussed that because of the trauma he endured from this, he will likely continue to have some hematuria. He will follow-up with urology as advised. Patient discharged home in stable condition. Case discussed with ED attending Dr. Graham. Return precautions reviewed in depth, the patient is instructed to return to the emergency department with any new, worsening, or concerning symptoms. Patient verbalized understanding. Undiagnosed new problem with uncertain prognosis? @ -None Drug Therapy requiring intensive monitoring for toxicity (Heparin, Nitro, Insulin, Cardizem)? @ -None Were any procedures done? @ -None Diagnosis/symptom? @ -Anderson catheter malfunction Acute, or Chronic, or Acute on Chronic? @ -Acute Uncomplicated (without systemic symptoms) or Complicated (systemic symptoms)? @ -Uncomplicated Side effects of treatment? @ -None Exacerbation, Progression, or Severe Exacerbation] @ -Not applicable Poses a threat to life or bodily function? @ -No Disposition Clinical Impression: Malfunction of Anderson catheter Disposition: HOME SELF-CARE Instructions (If sedation given, give patient instructions): Anderson Catheter Placement and Care (ED), How to Change a Catheter Drainage Bag (DC) Additional Instructions: Return to the emergency department with any new, worsening, or concerning symptoms. Follow up with your primary care provider in 1-2 days. Is patient prescribed a controlled substance at d/c from ED?: No Referrals: Vu Hamilton DO [Primary Care Provider] - 1-2 days Time of Disposition: 01:01
[2025-06-12 01:16] VITALS: BP 130/81; PULSE 82; RESP 20; TEMP 97.8
== END 2025-06-12 01:14 | disposition home or self-care (01) ==
LOC: SUPCPDRO 23:01 → EC 23:01
DX: T83.091A Other mechanical complication of indwelling urethral catheter, initial encounter (principal); Z88.2 Allergy status to sulfonamides; Z88.1 Allergy status to other antibiotic agents
CPT/HCPCS: 99283